=== PATIENT | female | born 1980 | race Caucasian/White ===

== ENCOUNTER 2017-07-24 16:49 | Emergency (ER) | payer MEDICAID ==
[~2017-07-24] VITALS: Ht 170.2 cm; Wt 117.9 kg
[2017-07-24 16:54] VITALS: BP_SYST 145
[2017-07-24] MEDS ORDERED: TRAM50TA92 PO (17:09)
[2017-07-24] MEDS ORDERED: ALD250 PO (17:09)
[2017-07-24] MEDS ORDERED: METHYLDOPA 250 MG TABLET (ALDOMET) PO STA (17:17)
[2017-07-24] MEDS ORDERED: HYDROmorphone 1 MG INJ. 1 MG/ML AMPUL IM ONE (18:30)
[2017-07-24] MEDS ORDERED: ONDANSETRON HCL 4 MG/2 ML VIAL IM ONE (18:30)
[2017-07-24 19:13] LABS: BILIRUBIN,URINE NEGATIVE (NEGATIVE); CLARITY/URINE CLEAR (CLEAR); COLOR,URINE YELLOW (YELLOW); GLUCOSE,URINE NEGATIVE (NEGATIVE); KETONES,URINE NEGATIVE (NEGATIVE); LEUKOCYTE ESTERASE ,URINE NEGATIVE (NEGATIVE); NITRITE, URINE NEGATIVE (NEGATIVE); PH,URINE 7.5 (5.0-8.0); PROTEIN URINE NEGATIVE (NEGATIVE); UROBILINOGEN,URINE 0.2 (0.2-1.0)
[2017-07-24 19:20] LABS: BLOOD, URINE TRACE (NEGATIVE)
[2017-07-24 19:23] LABS: BACTERIA,URINE FEW /HPF (None Seen); MUCUS,URINE None Seen /LPF (None Seen); RBC,URINE NONE SEEN /HPF (0-3); WBC,URINE 0-3 /HPF (0-3)
[2017-07-24 19:30] VITALS: BP_SYST 125
== END 2017-07-24 19:30 | disposition home or self-care (01) ==
LOC: SED 16:49
DX: O16.2 Unspecified maternal hypertension, second trimester (principal); Z3A.19 19 weeks gestation of pregnancy
CPT/HCPCS: 81000; 96372; 99284; J1170; J2405